=== PATIENT | male | born 1960 | race Caucasian/White ===

== ENCOUNTER 2018-02-07 06:16 | Inpatient (IN) | payer OTHER ==
[~2018-02-07] VITALS: Ht 165.1 cm; Wt 99.0 kg
[2018-02-07 06:42] VITALS: BP 118/81
[2018-02-07 08:05] VITALS: BP 118/81
[2018-02-07 17:53] VITALS: BP 102/53
[2018-02-07 21:47] VITALS: BP 108/71
[2018-02-08 06:04] VITALS: BP 127/88
[2018-02-08 09:06] VITALS: BP 132/87
[2018-02-08 14:20] VITALS: BP 136/81
[2018-02-08 17:54] VITALS: BP 144/81
[2018-02-08 21:42] VITALS: BP 129/82
[2018-02-09] VITALS (7 sets, daily range): BP systolic 115–133; BP diastolic 75–88
[2018-02-09 12:11] LABS: BASOPHIL % 1.1 % (0-2); PLATELET COUNT 212 x10^3mcL (130-400); RED CELL DISTRIBUTION WIDTH 13.6 % (11.5-14.5)
[2018-02-09 12:34] LABS: CARBON DIOXIDE 25.9 mmol/L (21-32); CHLORIDE SERUM 104 mmol/L (98-107); CREATININE SERUM 0.9 mg/dL (0.7-1.3); GFR1 > 60 mL/min; GLUCOSE SERUM 111 mg/dL (74-106); MAGNESIUM 2.1 mg/dL (1.8-2.4); POTASSIUM SERUM 3.9 mmol/L (3.5-5.1); SODIUM SERUM 140 mmol/L (136-145)
[2018-02-09 17:46] LABS: microscopic required? NO
[2018-02-09 17:54] LABS: UA SPECIFIC GRAVITY <=1.005 (1.005-1.035); urine erythrocyte NEGATIVE (NEGATIVE)
[2018-02-10 05:45] VITALS: BP 145/78
[2018-02-10 08:30] VITALS: BP 141/83
[2018-02-10 08:36] LABS: BASOPHIL % 0.5 % (0-2); PLATELET COUNT 206 x10^3mcL (130-400); RED CELL DISTRIBUTION WIDTH 13.3 % (11.5-14.5)
[2018-02-10 08:57] LABS: CALCIUM 8.7 mg/dL (8.5-10.1); CARBON DIOXIDE 23.7 mmol/L (21-32); CHLORIDE SERUM 105 mmol/L (98-107); CREATININE SERUM 0.8 mg/dL (0.7-1.3); GFR1 > 60 mL/min; GLUCOSE SERUM 144 mg/dL (74-106); MAGNESIUM 2.2 mg/dL (1.8-2.4); POTASSIUM SERUM 3.7 mmol/L (3.5-5.1); SODIUM SERUM 140 mmol/L (136-145)
[2018-02-10 10:28] VITALS: BP 105/60
[2018-02-10 18:50] VITALS: BP 134/75
[2018-02-10 20:45] VITALS: BP 132/83
[2018-02-11 06:01] VITALS: BP 109/61
[2018-02-11 08:34] VITALS: BP 119/74
[2018-02-11 12:00] VITALS: BP 114/66
[2018-02-11 12:45] VITALS: BP 109/67; BP 209/67
[2018-02-11 16:05] VITALS: BP 113/73
[2018-02-11 21:46] VITALS: BP 115/74
[2018-02-12 06:00] VITALS: BP 127/72
[2018-02-12 09:21] VITALS: BP 131/77
[2018-02-12] MEDS ORDERED: CORLANOR5 MG PO (12:30)
[2018-02-12] MEDS ORDERED: METOPROLOL TART25 M1 PO (12:32)
[2018-02-12] MEDS ORDERED: LOV40I SC (12:33)
[2018-02-12] MEDS ORDERED: NORCO1 TA1 PO (12:34)
[2018-02-12 13:28] VITALS: BP 133/83
[2018-02-12 13:30] VITALS: BP 133/83
[2018-02-12 16:42] VITALS: Ht 165.1 cm; Wt 99.0 kg
== END 2018-02-12 17:55 | disposition home health service (06) | DRG 470 ==
LOC: DU 06:16 → MU 06:16 → DU 02-10 18:45 → MU 02-11 21:29
PROVIDERS: Internal Medicine; Neuromusculoskeletal Medicine, Sports Medicine
PROC: 0SRD069 Replacement of Left Knee Joint with Oxidized Zirconium on Polyethylene Synthetic Substitute, Cemented, Open Approach (ICD-10-PCS; principal; 2018-02-07 07:30)
DX: M17.12 Unilateral primary osteoarthritis, left knee (principal); J98.11 Atelectasis; R00.0 Tachycardia, unspecified; R55 Syncope and collapse
CPT/HCPCS: 97110-GP; 97116-GP; 97139; 97530-GP; 97535-GP; C1713; C1776; J0690; J1170; J1650; J2274; J2704; J3490; J7030; J7050; J7120; Q0162; Q9967